=== PATIENT | male | born 1975 | race Hispanic/Latino ===

== ENCOUNTER 2023-03-03 13:06 | Outpatient (CLI) | payer SELFPAY | END 2023-03-03 13:07 | disposition home or self-care (01) | LOC: CSHWCC 13:06 | PROVIDERS: ATTEND Preventive Medicine Undersea and Hyperbaric Medicine | DX: E11.621 Type 2 diabetes mellitus with foot ulcer (principal); L97.526 Non-pressure chronic ulcer of other part of left foot with bone involvement without evidence of necrosis; L97.512 Non-pressure chronic ulcer of other part of right foot with fat layer exposed | CPT/HCPCS: 97605 ==

== ENCOUNTER 2023-03-09 14:23 | Outpatient (CLI) | payer SELFPAY | END 2023-03-09 14:24 | disposition home or self-care (01) | LOC: CSHWCC 14:23 | PROVIDERS: ATTEND Preventive Medicine Undersea and Hyperbaric Medicine | DX: E11.621 Type 2 diabetes mellitus with foot ulcer (principal); L97.526 Non-pressure chronic ulcer of other part of left foot with bone involvement without evidence of necrosis; L97.512 Non-pressure chronic ulcer of other part of right foot with fat layer exposed | CPT/HCPCS: 29445; 29581; 97605; 99212; G0463 ==

== ENCOUNTER 2023-03-12 14:08 | Outpatient (CLI) | payer OTHER, SELFPAY | END 2023-03-12 14:09 | disposition home or self-care (01) | LOC: CSHWCC 14:08 | PROVIDERS: ATTEND Preventive Medicine Undersea and Hyperbaric Medicine | DX: E11.621 Type 2 diabetes mellitus with foot ulcer (principal); L97.512 Non-pressure chronic ulcer of other part of right foot with fat layer exposed; L97.526 Non-pressure chronic ulcer of other part of left foot with bone involvement without evidence of necrosis | CPT/HCPCS: 97605 ==

== ENCOUNTER 2023-03-16 15:31 | Outpatient (CLI) | payer SELFPAY | END 2023-03-16 15:32 | disposition home or self-care (01) | LOC: CSHWCC 15:31 | PROVIDERS: ATTEND Physician Assistant | DX: E11.621 Type 2 diabetes mellitus with foot ulcer (principal); L97.526 Non-pressure chronic ulcer of other part of left foot with bone involvement without evidence of necrosis; L97.512 Non-pressure chronic ulcer of other part of right foot with fat layer exposed | CPT/HCPCS: 97605 ==

== ENCOUNTER 2023-03-19 13:36 | Outpatient (CLI) | payer SELFPAY | END 2023-03-19 13:37 | disposition home or self-care (01) | LOC: CSHWCC 13:36 | PROVIDERS: ATTEND Physician Assistant | DX: E11.621 Type 2 diabetes mellitus with foot ulcer (principal); L97.526 Non-pressure chronic ulcer of other part of left foot with bone involvement without evidence of necrosis; L97.512 Non-pressure chronic ulcer of other part of right foot with fat layer exposed | CPT/HCPCS: 97605 ==

== ENCOUNTER 2023-03-23 15:28 | Outpatient (CLI) | payer OTHER, SELFPAY | END 2023-03-23 15:29 | disposition home or self-care (01) | LOC: CSHWCC 15:28 | PROVIDERS: ATTEND Physician Assistant | DX: E11.621 Type 2 diabetes mellitus with foot ulcer (principal); L97.526 Non-pressure chronic ulcer of other part of left foot with bone involvement without evidence of necrosis; L97.512 Non-pressure chronic ulcer of other part of right foot with fat layer exposed | CPT/HCPCS: 97605; 99213; G0463 ==

== ENCOUNTER 2023-03-26 16:10 | Outpatient (CLI) | payer SELFPAY | END 2023-03-26 16:11 | disposition home or self-care (01) | LOC: CSHWCC 16:10 | PROVIDERS: ATTEND Nurse Practitioner Family | DX: E11.621 Type 2 diabetes mellitus with foot ulcer (principal); L97.512 Non-pressure chronic ulcer of other part of right foot with fat layer exposed; L97.526 Non-pressure chronic ulcer of other part of left foot with bone involvement without evidence of necrosis | CPT/HCPCS: 11042; 87070; 87077; 87186; 87205; 97605 ==

== ENCOUNTER 2023-03-30 15:33 | Outpatient (CLI) | payer SELFPAY | END 2023-03-30 15:34 | disposition home or self-care (01) | LOC: CSHWCC 15:33 | PROVIDERS: ATTEND Nurse Practitioner Family | DX: E11.621 Type 2 diabetes mellitus with foot ulcer (principal); L97.526 Non-pressure chronic ulcer of other part of left foot with bone involvement without evidence of necrosis; L97.512 Non-pressure chronic ulcer of other part of right foot with fat layer exposed; L08.89 Other specified local infections of the skin and subcutaneous tissue | CPT/HCPCS: 11044 ==

== ENCOUNTER 2023-04-02 15:14 | Outpatient (CLI) | payer SELFPAY | END 2023-04-02 15:15 | disposition home or self-care (01) | LOC: CSHWCC 15:14 | PROVIDERS: ATTEND Nurse Practitioner Family | DX: E11.621 Type 2 diabetes mellitus with foot ulcer (principal); L97.526 Non-pressure chronic ulcer of other part of left foot with bone involvement without evidence of necrosis; L97.512 Non-pressure chronic ulcer of other part of right foot with fat layer exposed; L08.89 Other specified local infections of the skin and subcutaneous tissue | CPT/HCPCS: 97605 ==

== ENCOUNTER 2023-04-07 16:29 | Outpatient (CLI) | payer SELFPAY | END 2023-04-07 16:30 | disposition home or self-care (01) | LOC: CSHWCC 16:29 | PROVIDERS: ATTEND Nurse Practitioner Family | DX: E11.621 Type 2 diabetes mellitus with foot ulcer (principal); L97.512 Non-pressure chronic ulcer of other part of right foot with fat layer exposed; L97.526 Non-pressure chronic ulcer of other part of left foot with bone involvement without evidence of necrosis; L08.89 Other specified local infections of the skin and subcutaneous tissue | CPT/HCPCS: 11043 ==

== ENCOUNTER 2023-04-14 15:24 | Outpatient (CLI) | payer SELFPAY | END 2023-04-14 15:25 | disposition home or self-care (01) | LOC: CSHWCC 15:24 | PROVIDERS: ATTEND Nurse Practitioner Family | DX: E11.621 Type 2 diabetes mellitus with foot ulcer (principal); L97.512 Non-pressure chronic ulcer of other part of right foot with fat layer exposed; L97.526 Non-pressure chronic ulcer of other part of left foot with bone involvement without evidence of necrosis; L08.89 Other specified local infections of the skin and subcutaneous tissue | CPT/HCPCS: 11042 ==